=== PATIENT | male | born 1975 | race Two or more races ===

== ENCOUNTER 2024-11-09 10:15 | Emergency (ER) | payer BC, SELFPAY ==
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
[2024-11-09 10:21] VITALS: BP 137/91; PULSE 86; RESP 20; O2SAT 96
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
--- NOTE | 2024-11-09 11:33 | CMPROGNOTE_ITS ---
Date of service: 11/09/24 Time of Service: 11:33 Care Management Progress Note Progress Note Text Progress Note Text: CM was called by ED staff surrounding Srinivasa's discharge plan. Srinivasa requires transportation back to [facility]. CM contacted [facility], prior auth complete. Srinivasa will discharge via private vehicle. [facility] no longer needed. CM notified [facility] CM will continue to follow. Social Determinants of Health Screening Will the Patient Participate in the Screening?: Unable to obtain
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
[2024-11-09 12:05] VITALS: BP 129/100; PULSE 98; RESP 18; TEMP 36.6; O2SAT 100
== END 2024-11-09 12:18 | disposition home or self-care (01) ==
PROVIDERS: Emergency Provider Emergency Medicine
DX: R05.1 Acute cough (principal); T75.1XXA Unspecified effects of drowning and nonfatal submersion, initial encounter
CPT/HCPCS: 99283 ×2; 71046